=== PATIENT | female | born 1940 | race Caucasian/White ===

== ENCOUNTER 2017-11-07 12:41 | Observation (INO) ==
--- NOTE | 2017-11-07 13:04 | Emergency Department Note ---
Addendum entered and electronically signed by Gayle Cole 11/07/17 15:00: Addendum to diagnosis: Paresthesia of Right Arm. Original Note: Disposition Clinical Impression: Paresthesia of left arm Disposition: Admitted As Inpatient Condition: Fair General Adult HPI - General Chief complaint: ED Chest Pain Stated complaint: left arm numbness Time Seen by Provider: 11/07/17 12:51 Source: patient Mode of arrival: EMS Limitations: no limitations Nursing Notes Reviewed: Yes Vital Signs Reviewed: Yes - History of Present Illness HPI Narrative: Patient is a 77-year-old female with past medical history including hypothyroidism who presents with a chief complaint of right arm numbness that started 30 minutes ago. Patient states she was outside shoveling gravel and she suddenly developed right arm numbness and weakness. She states the numbness was radiating into the right side of her neck and face and down her right hand. She became nauseous and lightheaded and but denies loss of consciousness. She denies chest pain or shortness of breath, other extremity weakness, slurred speech, change in vision. She took 2 baby aspirin. She states this lasted 10 minutes and did not resolve so she called EMS to take her to the ED as this has never happened before. En route to the ED the patient received an additional 160 mg of aspirin. At present the patient states her lightheadedness and numbness resolved. She feels like her right shoulder is hard and does not feel right. Pain Scale: 4 - Related Data Home Medications Medication Instructions Recorded Confirmed Levothyroxine [Synthroid] 75 mcg PO QAM 11/07/17 11/07/17 All systems ED: reviewed and negative except as stated. Review of Systems: As Per HPI Constitutional: Denies: fever, chills Eyes: Denies: vision change ENT ED: Denies: throat pain, dysphagia Cardiovascular: Denies: chest pain, palpitations Respiratory: Denies: cough, dyspnea, wheezes Gastrointestinal: Reports: nausea. Denies: abdominal pain, vomiting, diarrhea Genitourinary: Denies: dysuria Musculoskeletal: Reports: other (right arm numbness and weakness). Denies: back pain, neck pain Integumentary: Denies: rash Neurological: Reports: weakness, numbness. Denies: headache Allergic/Immunologic: Denies: itchy eyes Past Medical History - Past Medical History Attestation: Yes The following information was validated with the patient. Source: patient Medical history: Reports: thyroid disease - Social History Smoking Status: Never smoker Drug use: Reports: none Physical Exam - General Limitations: no limitations General appearance: alert, in no apparent distress - Head Head exam: atraumatic, normocephalic - Eye Eye exam: Present: PERRL, EOMI - ENT ENT exam: normal exam, mucous membranes moist - Neck Neck exam: Present: full ROM. Absent: tenderness - Respiratory Respiratory exam: Present: normal lung sounds bilaterally. Absent: respiratory distress, wheezes - Cardiovascular Cardiovascular exam: Present: regular rate, normal rhythm, normal heart sounds - Abdominal Exam Abdominal exam: Present: soft, Non-Tender. Absent: distention - Extremities Exam Extremities exam: Present: full ROM, other (rull ROM of right shoulder, elbow, wrist. No tenderness of right arm or shoulder) - Neurological Exam Neurological exam: Present: alert, oriented X3, CN II-XII intact - Expanded Neurological Exam Patient oriented to: Present: person, place, time Cranial nerves: EOM function (II, III, IV, ): Normal, facial sensation (V): Normal, facial palsy (VII): Normal, spinal accessory function (XI): Normal, tongue deviation (XII): Normal Cerebellar function: finger to nose: Normal, heel to rodarte: Normal Motor strength - LUE: 5/5 Motor strength - RUE: 5/5 Motor strength - LLE: 5/5 Motor strength - RLE: 5/5 Upper motor neuron exam: diana neglect: Absent bilaterally, pronator drift: Absent bilaterally Sensory exam upper extremity: light touch: Normal Sensory exam lower extremity: light touch: Normal Course Vital Signs Temperature 97.9 F 11/07/17 12:47 Pulse Rate 75 11/07/17 12:47 Respiratory Rate 18 11/07/17 12:47 Blood Pressure 158/65 11/07/17 12:47 O2 Sat by Pulse Oximetry 95 11/07/17 12:47 Temperature 97.9 F 11/07/17 12:47 Pulse Rate 87 11/07/17 16:25 Respiratory Rate 18 11/07/17 17:05 Blood Pressure 137/86 11/07/17 17:05 O2 Sat by Pulse Oximetry 98 11/07/17 16:25 Oxygen Delivery Oxygen Delivery Room Air Medical Decision Making - MDM Narrative Medical decision making narrative: Numbness and weakness resolved at this time but patient still complaining of a weird feeling in her right arm. NIH score 0 on our exam. Patient's symptoms concerning for possible TIA. Will check CT head without contrast. Will also obtain cardiac workup. Check CBC, BMP, troponin, ekg, chest xray. She will likely need to be admitted for possible TIA workup. 13:30 CT head results shows no acute intracranial abnormality and chest xray shows no acute cardiopulmonary process. 14:15 Troponin is <0.03 and ekg with no acute ischemic changes. 14:25 BMP normal. Will consult hospitalist for admission for further workup of TIA. 14:40 Discussed with hospitalist, Dr. Gregory, who will accept patient. - Medical Records Medical records reviewed: Yes I reviewed the patient's medical records. - Lab Data Lab results reviewed: Yes I reviewed the patient's lab results. Result diagrams: 11/07/17 13:33 11/07/17 13:33 Lab Results 11/07/17 11/07/17 11/07/17 Range/Units 13:33 13:33 13:33 WBC 6.3 (4.3-11.1) K/mcL RBC 4.78 (3.82-4.97) M/mcL Hgb 13.9 (11.5-15.4) g/dL Hct 42.4 (35.3-44.9) % MCV 88.7 (83.0-100.0) fL MCH 29.1 (28.0-33.3) pg MCHC 32.8 (31.6-35.5) g/dL RDW 12.5 (11.5-14.5) % Plt Count 227 (140-400) K/mcL MPV 9.3 L (9.4-12.4) fL Immature Gran % 0.2 (0-4) % Seg Neutrophils % 48.7 % Lymphocytes % 31.5 % Monocytes % 11.9 % Eosinophils % 6.7 % Basophils % 1.0 % Neutrophils # 3.1 (1.6-8.9) K/mcL Lymphocytes # 2.0 (0.6-4.6) K/mcL Monocytes # 0.8 (0.0-1.3) K/mcL Eosinophils # 0.4 (0.0-0.6) K/mcL Basophils # 0.1 (0.0-0.2) K/mcL PT 10.2 (9.4-12.1) Seconds INR 0.9 APTT 28.5 (26.0-36.0) Seconds Sodium 139 (136-145) mEq/L Potassium 4.3 (3.5-5.1) mEq/L Chloride 105 (98-107) mEq/L Carbon Dioxide 28 (23-29) mEq/L BUN 21 (8-23) mg/dL Creatinine 0.79 (0.60-1.20) mg/dL Est GFR ( Amer) > 60 (> 60) Est GFR (Non-Af Amer) > 60 (> 60) BUN/Creatinine Ratio 27 H (6-26) Glucose 100 (70-105) mg/dL Calculated Osmolality 291 (280-300) Calcium 9.3 (8.6-10.3) mg/dL Troponin I < 0.03 (< 0.04) ng/mL TSH 3.373 (0.340-5.600) mcIU/mL - Radiology Data Radiology results reviewed: Yes I reviewed the patient's radiology results. Chest X-Ray 11/07/17 12:54 IMPRESSION: No acute process. D/ / Reji Blanc MD / Reji Blanc MD Interpreting Provider: Reji Blanc MD Head CT 11/07/17 12:55 IMPRESSION: No acute intracranial abnormality. D/ / Kisha Lyn MD / Kisha Lyn MD Interpreting Provider: Kisha Lyn MD - EKG Data EKG #1 EKG attestation: Yes I reviewed and interpreted this EKG. EKG results narrative: EKG on 11/07/17 at 13:33 shows sinus rhythm with rate 65. MN interval 119, QT 419 , QTc 436. No evidence of ST elevation or depression. Compared to prior ekg on 04/05/2009 with sinus rhythm. No acute changes. Heart Score - Score History: Slightly Suspicious EKG: Normal Age: Greater than 65 Risk Factors: No risk factors known Troponin: Less than normal limit HEART Score Total: 2
--- NOTE | 2017-11-07 13:06 | Emergency Department Note ---
Disposition Clinical Impression: Paresthesia of left arm Disposition: Admitted As Inpatient Condition: Fair Forms: ED Satisfaction Letter Time of Disposition: 14:58 General Adult HPI - General Chief complaint: ED Chest Pain Stated complaint: left arm numbness Time Seen by Provider: 11/07/17 12:51 Source: patient Mode of arrival: EMS Limitations: no limitations - History of Present Illness Pain Scale: 4 - Related Data Home Medications Medication Instructions Recorded Confirmed Levothyroxine [Synthroid] 75 mcg PO QAM 11/07/17 11/07/17 Past Medical History - Past Medical History Medical history: Reports: thyroid disease - Social History Smoking Status: Current every day smoker Physical Exam - General Limitations: no limitations General appearance: alert, in no apparent distress Course Vital Signs Temperature 97.9 F 11/07/17 12:47 Pulse Rate 75 11/07/17 12:47 Respiratory Rate 18 11/07/17 12:47 Blood Pressure 158/65 11/07/17 12:47 O2 Sat by Pulse Oximetry 95 11/07/17 12:47 Temperature 97.9 F 11/07/17 12:47 Pulse Rate 75 11/07/17 12:47 Respiratory Rate 18 11/07/17 12:47 Blood Pressure 158/65 11/07/17 12:47 O2 Sat by Pulse Oximetry 95 11/07/17 12:47 Oxygen Delivery Oxygen Delivery Room Air Medical Decision Making - Lab Data Result diagrams: 11/07/17 13:33 11/07/17 13:33 Lab Results 11/07/17 11/07/17 11/07/17 Range/Units 13:33 13:33 13:33 WBC 6.3 (4.3-11.1) K/mcL RBC 4.78 (3.82-4.97) M/mcL Hgb 13.9 (11.5-15.4) g/dL Hct 42.4 (35.3-44.9) % MCV 88.7 (83.0-100.0) fL MCH 29.1 (28.0-33.3) pg MCHC 32.8 (31.6-35.5) g/dL RDW 12.5 (11.5-14.5) % Plt Count 227 (140-400) K/mcL MPV 9.3 L (9.4-12.4) fL Immature Gran % 0.2 (0-4) % Seg Neutrophils % 48.7 % Lymphocytes % 31.5 % Monocytes % 11.9 % Eosinophils % 6.7 % Basophils % 1.0 % Neutrophils # 3.1 (1.6-8.9) K/mcL Lymphocytes # 2.0 (0.6-4.6) K/mcL Monocytes # 0.8 (0.0-1.3) K/mcL Eosinophils # 0.4 (0.0-0.6) K/mcL Basophils # 0.1 (0.0-0.2) K/mcL PT 10.2 (9.4-12.1) Seconds INR 0.9 APTT 28.5 (26.0-36.0) Seconds Sodium 139 (136-145) mEq/L Potassium 4.3 (3.5-5.1) mEq/L Chloride 105 (98-107) mEq/L Carbon Dioxide 28 (23-29) mEq/L BUN 21 (8-23) mg/dL Creatinine 0.79 (0.60-1.20) mg/dL Est GFR ( Amer) > 60 (> 60) Est GFR (Non-Af Amer) > 60 (> 60) BUN/Creatinine Ratio 27 H (6-26) Glucose 100 (70-105) mg/dL Calculated Osmolality 291 (280-300) Calcium 9.3 (8.6-10.3) mg/dL Troponin I < 0.03 (< 0.04) ng/mL TSH 3.373 (0.340-5.600) mcIU/mL Attestation Statement - Attestation Attestation: I examined this patient and my medical decision-making was reviewed with the Resident Physician. I agree with the documented findings, disposition and treatment plan as described except to the extent set forth below. Patient to the ED with a chief complaint of right arm numbness. Patient states while she was shoveling gravel today she started getting an abnormal sensation in her right arm. She states she been shoveling for about 10 minutes. She got numbness in her upper arm. It spread down into her hand and up into her shoulder. She states she got really scared when it spread into the side of her face and head. She was nauseated and weak. The symptoms lasted about 45 minutes for the results. Patient states she just feels like her right shoulder does not feel right. The numbness and weakness is resolved. R examination reveals an NIH scale of 0. Plan. Cardiac workup. CT head. Likely admission for TIA workup. Workup negative. Patient still without symptoms. Admitted to medicine for further workup. Chest X-Ray 11/07/17 12:54 IMPRESSION: No acute process. D/ / eRji Blanc MD / Reji Blanc MD Interpreting Provider: Reji Blanc MD Head CT 11/07/17 12:55 IMPRESSION: No acute intracranial abnormality. D/ / 11/07/2017 14:25:57 Kisha Lyn MD / [facility] Interpreting Provider: Kisha Lyn MD
[2017-11-07 13:46] LABS: Basophils # 0.1 K/mcL (0.0-0.2); Eosinophils # 0.4 K/mcL (0.0-0.6); Eosinophils % 6.7 %; Hematocrit 42.4 % (35.3-44.9); Hemoglobin 13.9 g/dL (11.5-15.4); Immature Granulocytes % 0.2 % (0-4); Lymphocytes % 31.5 %; Mean Corpuscular HGB Conc 32.8 g/dL (31.6-35.5); Mean Corpuscular Hemoglobin 29.1 pg (28.0-33.3); Mean Corpuscular Volume 88.7 fL (83.0-100.0); Mean Platelet Volume 9.3 fL (9.4-12.4); Monocytes # 0.8 K/mcL (0.0-1.3); Monocytes % 11.9 %; Neutrophils # 3.1 K/mcL (1.6-8.9); Platelet Count 227 K/mcL (140-400); Red Blood Count 4.78 M/mcL (3.82-4.97); Red Cell Distribution Width 12.5 % (11.5-14.5); Segmented Neutrophils % 48.7 %
[2017-11-07 13:54] LABS: INR 0.9; Prothrombin Time 10.2 Seconds (9.4-12.1)
[2017-11-07 13:57] LABS: Activated Partial Thrombo Time 28.5 Seconds (26.0-36.0)
[2017-11-07 14:11] LABS: Troponin I < 0.03 ng/mL (< 0.04)
[2017-11-07 14:21] LABS: BUN/Creatinine Ratio 27 (6-26); Blood Urea Nitrogen 21 mg/dL (8-23); Calcium 9.3 mg/dL (8.6-10.3); Carbon Dioxide 28 mEq/L (23-29); Chloride 105 mEq/L (98-107); Glucose 100 mg/dL (70-105); Osmolality,Calculated 291 (280-300); Potassium 4.3 mEq/L (3.5-5.1); Sodium 139 mEq/L (136-145); eGFR For Non-African Americans > 60 (> 60)
[2017-11-07 14:25] LABS: Thyroid Stimulating Hormone 3.373 mcIU/mL (0.340-5.600)
[2017-11-07] MEDS ORDERED: Naloxone 0.4 MG/ML INJ IVP PRN (15:44)
[2017-11-07] MEDS ORDERED: *HR* HYDROcodone/Acet 5/325 mg TABLET PO PRN (15:44)
[2017-11-07] MEDS ORDERED: Acetaminophen 325 MG TABLET PO PRN (15:44)
--- NOTE | 2017-11-07 15:59 | Internal Med History&Physical ---
<YaminiSai borges - Last Filed: 11/07/17 16:20> Date of Encounter: 11/07/17 Time of Encounter: 15:00 Internal Medicine - H&P: HPI Chief complaint: CVA/TIA sx Admitted From: Emergency Dept Plans for Post Hospital Care: Home History of present illness: Ms. Abdi is a 77 year old female w/PMH of thyroid disease presents from the ED w/CC of TIA sx that occurred this morning at 10 a.m. while the pt. was exerting herself shoveling gravel from a truck. Pt. states her right arm went numb and spread to her right neck and head. Pt. reports SOB but denies any CP, facial droop, or slurred speech. Pt states that she felt as though she was about to pass out and felt dizzy/lightheaded. Took two aspirin at home along with hot sauce and received two more aspirin from general machinist. Reports sx improved w/ aspirin. Aggravating factor: exertion. Reports that she is back to her baseline once she was at the ED, however right arm is still mildly numb. Pt. denies recent illness, fever, chills, nausea, vomiting, headache, changes in vision, unusual bleeding, chest pain, chest congestion, cough, abdominal pain, diarrhea , constipation, or syncope. Past Med Surg Social Fam HX - Past Medical History Source: patient, old records reviewed, obtained from family Medical history: thyroid disease Psychiatric history: no psych history - Social History Smoking Status: Never smoker Alcohol use: none Drug use: none Current living situation: Home, With Family Activity Level: Independent ambulation, Very active Recent Out of Country Travel Within the Last 8 Weeks: No Exposure or Possible Exposure to Illness During Travel: No - Family History Father Race: Family Member Ethnicity: Non- Living Status: Age at : 80 Cause of : Bleeding ulcers Hx Family GI Disorders: Yes (Ulcers) Mother Race: Family Member Ethnicity: Non- Living Status: Age at : 90 Cause of : DM complications Hx Family Cardiac Disorders: Yes (TIAs) Hx Family Endocrine Disorder: Yes (DM) Hx Family Neurologic Disorders: Yes (TIAs) Brother Race: Family Member Ethnicity: Non- Living Status: Still Living Hx Family Medical Disorders: No Sister Race: Family Member Ethnicity: Non- Living Status: Still Living Hx Family Endocrine Disorder: Yes (Hypoglycemia) Grandmother Race: Family Member Ethnicity: Non- Living Status: Age at : 80 Cause of : CVA Hx Family Cardiac Disorders: Yes (CVA) Hx Family Neurologic Disorders: Yes (CVA) Internal Medicine - H&P: Meds Levothyroxine [Synthroid] 75 mcg PO QAM 11/07/17 [History] 3 Allergy/AdvReac Type Severity Reaction Status Date / Time No Known Allergies Allergy Verified 11/07/17 15:16 All Systems PM: A 10-system review of systems was performed and is negative for pertinent findings except as documented above in the HPI. - Constitutional Constitutional: no chills, no fever(s), no night sweats - EENT Eyes: no change in vision, no discharge, no pain, no photophobia Ears: no ear discharge, no ear pain, no tinnitus Nose, mouth and throat: no dysphagia, no nasal discharge, no neck pain, no sore throat - Breasts Breasts: as per HPI - Cardiovascular Cardiovascular ROS IM: as per HPI, dyspnea, dyspnea on exertion, lightheadedness , no chest pain, no diaphoresis, no palpitations, no syncope - Respiratory Respiratory: as per HPI, dyspnea, dyspnea on exertion, no cough, no wheezing, no excessive phlegm production - Gastrointestinal Gastrointestinal: no abdominal pain, no diarrhea, no hematemesis, no hematochezia, no melena, no nausea, no vomiting - Genitourinary Genitourinary: no change in urinary stream, no dysuria, no flank pain, no hematuria Menstruation: as per HPI - Musculoskeletal Musculoskeletal ROS IM: no numbness, no tingling - Integumentary Integumentary IM: no rash, no unusual bruising - Neurological Neurological ROS: as per HPI, dizziness, no confusion, no convulsions, no focal weakness, no numbness, no tingling, no tremor(s) - Psychiatric Psychiatric: as per HPI - Endocrine Endocrine IM: as per HPI - Hematologic/Lymphatic Hematologic/Lymphatic: no easy bruising - Allergic/Immunologic Allergic/Immunologic: as per HPI - Constitutional Vitals: Temp Pulse Resp BP Pulse Ox 97.9 F 75 18 158/65 95 11/07/17 12:47 11/07/17 12:47 11/07/17 12:47 11/07/17 12:47 11/07/17 12:47 General appearance: Present: cooperative, A&O X 3, pleasant, no acute distress, obese, answers questions appropriately Exam: Pt. examined at bedside in ED. Pt. was conversational and comfortable w/o neuro deficits, facial droop, pronator drift, or slurred speech. Reports mild numbness to right arm but numbness to right neck and head are resolved. Received 5 aspirin and drank hot sauce (for the Capsaicin). Denies previous occurrence or personal hx of TIA/CVA. Reports SOB and dizziness have resolved. Denies other sx on exam. Will do stroke work-up. Family present and plan of care explained to them. Pt. and family expressed understanding and agreement. - Head Head exam: Present: atraumatic, normocephalic - Eye Eye exam: Present: PERRL, conjuntiva pink, sclera anicteric Pupils: Present: PERRL - ENT ENT exam: Present: normal exam - Neck Neck exam general surgery: Present: normal inspection, supple, trachea midline. Absent: lymphadenopathy - Respiratory Respiratory exam: Present: CTAB. Absent: accessory muscle use, rales, rhonchi, wheezes - Cardiovascular Cardiovascular exam: Present: RRR, +S1, +S2. Absent: diastolic murmur, gallop, rubs, systolic murmur - GI/Abdominal GI/Abdominal exam: Present: normal bowel sounds, soft, no peritoneal signs. Absent: distended, tenderness - Rectal Rectal exam: Present: deferred - Additional comments: exam deferred. - Extremities Exam Extremities exam: Present: warm, radial pulses palpable and symmetrical. Absent : calf tenderness, cyanotic, pedal edema - Back Exam Back exam: Present: normal inspection - Neurological Exam Neurological exam: Present: alert, CN II-XII intact, oriented X3, no focal deficits. Absent: pronater drift, facial droop, speech deficit - Psychiatric Psychiatric exam: Present: normal affect, normal mood - Skin Skin exam: Present: dry, intact Internal Med - H&P Results - Labs CBC & Chem 7: 11/07/17 13:33 11/07/17 13:33 Labs: Short CBC 11/07/17 Range/Units 13:33 WBC 6.3 (4.3-11.1) K/mcL Hgb 13.9 (11.5-15.4) g/dL Hct 42.4 (35.3-44.9) % Plt Count 227 (140-400) K/mcL Neutrophils # 3.1 (1.6-8.9) K/mcL BMP 11/07/17 13:33 Sodium 139 Potassium 4.3 Chloride 105 Carbon Dioxide 28 BUN 21 Creatinine 0.79 Glucose 100 Calcium 9.3 Cardiac Enzymes 11/07/17 Range/Units 13:33 Troponin I < 0.03 (< 0.04) ng/mL - EKG Data EKG shows normal: sinus rhythm - EKG Data Prior EKG available for review: yes EKG comments: 11/07/17 16:06 EKG dated 04/05/09 shows sinus rhythm within normal limits and normal ECG. EKG dated 11/07/17 shows sinus rhythm with borderline short [place] interval and borderline low voltage in extremity leads. - Impressions ITS Impressions Chest X-Ray 11/07/17 12:54 IMPRESSION: No acute process. D/ / Reji Blanc MD / Reji Blanc MD Interpreting Provider: Reji Blanc MD Head CT 11/07/17 12:55 IMPRESSION: No acute intracranial abnormality. D/ / 11/07/2017 14:25:57 Kisha Lyn MD / [facility] Interpreting Provider: Kisha Lyn MD - Diagnostic Studies Chest x-ray Additional comments: Impressions Chest X-Ray 11/07/17 12:54 IMPRESSION: No acute process. D/ / Reji Blanc MD / Reji Blanc MD Interpreting Provider: Reji Blanc MD CT scan - head Additional comments: Impressions Head CT 11/07/17 12:55 IMPRESSION: No acute intracranial abnormality. D/ / 11/07/2017 14:25:57 Kisha Lyn MD / lore Interpreting Provider: Kisha Lyn MD - Assessment and plan (1) TIA (transient ischemic attack) Current Visit: Yes Status: Acute Assessment and plan: Acute paresthesia of the right arm which spread to right neck and head. Sx resolved following ASA except for mild numbness in right arm that remains. Denies previous occurrence or personal hx of CVA/TIA. Grandmother of CVA. Mother had hx of TIAs. On exam, no neuro deficits, facial droop, pronator drift , slurred speech. Falls/safety precautions. Up with assist only. CT of the head/ brain shows no intracranial abnormality. MRI of the head/brain ordered. NIHSS Modified. Neuro checks Q2HR. Padding to bed rails. NPO until dysphagia screen passed. Bilateral carotid Dopplers. Echocardiogram. Continuous cardiac telemetry. Consider Neurology consult if MRI results abnormal. Pt. discussed w/ Dr. Aggarwal who agrees w/plan of care. Pt. is moderate risk for further morbidity and complications d/t new onset of TIA-type sx, current obesity, and familial hx of CVA/TIA. Observation. (2) Paresthesia of right upper limb Current Visit: Yes Status: Acute Assessment and plan: Acute paresthesia of the right arm which spread to right neck and head. Sx resolved following ASA except for mild numbness in right arm that remains. Denies previous occurrence or personal hx of CVA/TIA. Grandmother of CVA. Mother had hx of TIAs. Falls/safety precautions. Up with assist only. CT of the head/brain shows no intracranial abnormality. MRI of the head/brain ordered. NIHSS Modified. Neuro checks Q2HR. Padding to bed rails. NPO until dysphagia screen passed. Bilateral carotid Dopplers. Echocardiogram. Continuous cardiac telemetry. (3) SOB (shortness of breath) Current Visit: Yes Status: Acute Assessment and plan: Acute SOB today with neuro sx. Pt. denies hx of COPD, smoking, CHF, or home O2 use. No pedal edema on exam. Lungs clear on auscultation. Pt. states she is generally very active. Supplemental O2 w/titration and SpO2 monitoring PRN. Falls/safety precautions and up with assist only. (4) Dizziness Current Visit: Yes Status: Acute Assessment and plan: Acute dizziness today w/neuro sx. Pt. states she felt as though she was going to pass out. Bilateral carotid Dopplers. Echocardiogram. Orthostatic BPs and VS. Falls/safety precautions and up with assist only. Continuous cardiac telemetry. (5) Thyroid disease Current Visit: Yes Status: Chronic Assessment and plan: Hx of chronic thyroid disease. TSH 3.373 on admission. Continue pts. Synthroid. (6) DVT prophylaxis Current Visit: Yes Status: Acute Assessment and plan: Bilateral SCDs on LEs for DVT prophylaxis until pts. MRI resulted to r/o infarct /ischemia. - Time Spent With Patient Total time spent is greater than 50% in coordination of care (as documented) at patient's floor/unit and/or counseling patient: Greater than 35 minutes <Vito Aggarwal - Last Filed: 11/07/17 20:16> Date of Encounter: 11/07/17 Internal Medicine - H&P: HPI History of present illness: Ms. Abdi is a 77 year old female All Systems PM: A 10-system review of systems was performed and is negative for pertinent findings except as documented above in the HPI. - Constitutional Vitals: Temp Pulse Resp BP Pulse Ox 97.6 F 55 16 96/60 95 11/07/17 18:39 11/07/17 18:39 11/07/17 18:39 11/07/17 18:39 11/07/17 18:39 Internal Med - H&P Results - Labs CBC & Chem 7: 11/07/17 13:33 11/07/17 13:33 Labs: Cardiac Enzymes 11/07/17 Range/Units 19:20 Troponin I < 0.03 (< 0.04) ng/mL - Assessment and plan (1) TIA (transient ischemic attack) Current Visit: Yes Status: Acute (2) Paresthesia of right upper limb Current Visit: Yes Status: Acute (3) SOB (shortness of breath) Current Visit: Yes Status: Acute (4) Dizziness Current Visit: Yes Status: Acute (5) Thyroid disease Current Visit: Yes Status: Chronic (6) DVT prophylaxis Current Visit: Yes Status: Acute - Time Spent With Patient Total time spent is greater than 50% in coordination of care (as documented) at patient's floor/unit and/or counseling patient: - Attending Attestation Seen and assessed. Continue management for TIA. Agree with plan per EDUCATIONAL TECHNOLOGY COORDINATOR
[2017-11-08 01:38] LABS: Basophils % 0.8 %; Eosinophils # 0.4 K/mcL (0.0-0.6); Eosinophils % 8.2 %; Hematocrit 38.5 % (35.3-44.9); Hemoglobin 12.9 g/dL (11.5-15.4); Immature Granulocytes % 0.2 % (0-4); Lymphocytes # 2.1 K/mcL (0.6-4.6); Lymphocytes % 39.6 %; Mean Corpuscular HGB Conc 33.5 g/dL (31.6-35.5); Mean Corpuscular Hemoglobin 29.3 pg (28.0-33.3); Mean Corpuscular Volume 87.3 fL (83.0-100.0); Mean Platelet Volume 9.3 fL (9.4-12.4); Monocytes # 0.7 K/mcL (0.0-1.3); Monocytes % 13.3 %; Platelet Count 207 K/mcL (140-400); Red Blood Count 4.41 M/mcL (3.82-4.97); Red Cell Distribution Width 12.7 % (11.5-14.5); Segmented Neutrophils % 37.9 %
[2017-11-08 01:44] LABS: Alanine Aminotransferase 9 Units/L (7-52); Albumin 3.6 g/dL (3.5-5.7); Albumin/Globulin Ratio 1.3 (1.1-2.2); Alkaline Phosphatase 62 Units/L (34-104); Aspartate Amino Transferase 14 Units/L (13-39); BUN/Creatinine Ratio 26 (6-26); Bilirubin,Total 0.4 mg/dL (0.3-1.0); Blood Urea Nitrogen 20 mg/dL (8-23); Carbon Dioxide 27 mEq/L (23-29); Chloride 106 mEq/L (98-107); Chol/HDL Ratio 5.7 (0-4.9); Cholesterol 205 mg/dL (< 200); Globulin 2.7 g/dL (2.4-3.5); Glucose 118 mg/dL (70-105); HDL Cholesterol 36 mg/dL (40-59); LDL Cholesterol,Calculated 131 mg/dL (0-99); Magnesium 2.1 mg/dL (1.6-2.6); Osmolality,Calculated 290 (280-300); Potassium 3.9 mEq/L (3.5-5.1); Sodium 138 mEq/L (136-145); Total Protein 6.3 g/dL (6.4-8.9); Triglycerides 188 mg/dL (< 150); eGFR For Non-African Americans > 60 (> 60)
[2017-11-08] MEDS ORDERED: Aspirin Enteric Coated 81 MG Tablet PO SCH (09:00)
--- NOTE | 2017-11-08 09:01 | Neurology - Consult Note ---
<Henry Phelps P - Last Filed: 11/08/17 10:20> Date of Encounter: 11/08/17 Time of Encounter: 09:30 Assessment and Plan (1) TIA (transient ischemic attack) Current Visit: Yes Status: Acute She has weakness and numbness in her right arm lasted for less than 24 hours She states that she had weakness in right arm 50% less than her left arm CTA head and CT head : negative for bleeding or any acute intracranial abnormality MRI: Non hemorrhagic cortical infarct left frontal lobe Echo : no Clot , no PFO , mild LVDD EF 65% She is on aspirin History of Present Illness Chief complaint: Acute onset of Weakness in right arm and neck HPI: Ms. Abdi is a 77 year old female past diagnosis of Thyroid disease admitted in [facility] via ED for sudden weakness and numbness in right arm , neck while shoveling from a loaded truck . She stated that it started suddently and get worse in a few hours and gradually better in about 24 hours. She states that she has mild numbness in her right upper limb but very minimal , but She had chest pain and felt that she is going to pass out. She admits dizziness, mild nausea and light headedness during the attack . She didn't have similar symptoms in the past .She denies any facial droop , slurred speech, nausea, vomiting ,fever, chills, nausea, vomiting, headache, changes in vision, unusual bleeding, chest pain, chest congestion, cough, abdominal pain, diarrhea, constipation, or syncope. Vitals : 97.9, pul 70, sat 95%, BP 152/ 71 Labs : WBC 5.3 Na 138 K 3.9 BUN 20, creatinine 0.76, Cholesterol 205, LDL 131 , TG 188 Report: MRI head :Subcentimeter acute nonhemorrhagic cortical infarct left frontal lobe. CT head:No acute intracranial abnormality. Echo : mild LVDD with EF 65% , no left artial clot or PFO Past Med Surg Social Fam HX - Past Medical History Medical history: thyroid disease Psychiatric history: no psych history - Past Surgical History Surgical History: hysterectomy - Social History Smoking Status: Never smoker Alcohol use: none Drug use: none - Family History Father Race: Family Member Ethnicity: Non- Living Status: Age at : 80 Cause of : Bleeding ulcers Hx Family GI Disorders: Yes (Ulcers) Mother Race: Family Member Ethnicity: Non- Living Status: Age at : 90 Cause of : DM complications Hx Family Cardiac Disorders: Yes (TIAs) Hx Family Endocrine Disorder: Yes (DM) Hx Family Neurologic Disorders: Yes (TIAs) Brother Race: Family Member Ethnicity: Non- Living Status: Still Living Hx Family Medical Disorders: No Sister Race: Family Member Ethnicity: Non- Living Status: Still Living Hx Family Endocrine Disorder: Yes (Hypoglycemia) Grandmother Race: Family Member Ethnicity: Non- Living Status: Age at : 80 Cause of : CVA Hx Family Cardiac Disorders: Yes (CVA) Hx Family Neurologic Disorders: Yes (CVA) Medications and Allergies Levothyroxine [Synthroid] 75 mcg PO QAM 11/07/17 [History] 3 Allergy/AdvReac Type Severity Reaction Status Date / Time No Known Allergies Allergy Verified 11/07/17 15:16 All Systems: The remainder of the systems were reviewed and are negative Physical Examination - Vital Signs Vital Signs: Initial Vital Signs Temp Pulse Resp BP Pulse Ox 97.9 F 75 18 158/65 95 11/07/17 12:47 11/07/17 12:47 11/07/17 12:47 11/07/17 12:47 11/07/17 12:47 - Constitutional General appearance: comfortable - Neurologic Sensorimotor examination: intact Detailed motor examination: grossly full strength in all extremities Motor examination - right side: 5/5: deltoids, biceps, triceps, wrist flexion, wrist extension, employment law attorney, hip flexors, tibialis Anterior, quadriceps, toe extension (EHL), plantarflexion Motor examination - left side: 5/5: deltoids, biceps, triceps, wrist flexion, wrist extension, hip flexors, employment law attorney, quadriceps, tibialis Anterior, toe extension (EHL), plantarflexion Detailed sensory examination: intact Reflex and gait examination: intact Reflexes: Biceps: 2+, Triceps: 2+, Brachioradialis: 2+, Patella: 2+, Achilles: 2 + Mental Status Examination: awake, alert, oriented to person, oriented to place, oriented to time, follows commands appropriately, answers questions appropriately Cranial nerve examination: PERRL, EOMI, visual whipple intact, corneal reflexes brisk symmetrically, sensory to face intact, no facial asymmetry is present Cerebellar examination: no dysmetria, performs finger to nose and heel to rodarte symmetrically without ataxia, no gait ataxia Results - Laboratory Findings CBC and BMP: 11/08/17 01:12 11/08/17 01:12 Abnormal lab findings: Abnormal lab results MPV 9.3 fL (9.4-12.4) L 11/08/17 01:12 Glucose 118 mg/dL (70-105) H 11/08/17 01:12 Serum Total Protein 6.3 g/dL (6.4-8.9) L 11/08/17 01:12 Triglycerides 188 mg/dL (< 150) H 11/08/17 01:12 Cholesterol 205 mg/dL (< 200) H 11/08/17 01:12 LDL Cholesterol, Calc 131 mg/dL (0-99) H 11/08/17 01:12 VLDL Cholesterol, Calc 38 mg/dL (< 31) H 11/08/17 01:12 HDL Cholesterol 36 mg/dL (40-59) L 11/08/17 01:12 Cholesterol/HDL Ratio 5.7 (0-4.9) H 11/08/17 01:12 Consult Discharge Plan - Plan Referrals: Saul Murrieta MD [Primary Care Provider] - 11/12/17 10:00 am <Yohannes Neil I - Last Filed: 11/08/17 16:50> Date of Encounter: 11/08/17 Assessment and Plan (1) CVA (cerebral vascular accident) Current Visit: Yes Status: Acute Pt was seen and examined, my medical decision was reviewed with the Resident Physician, I agree with the documented findings, disposition and treatment plas as described except to the extent set forth below Clinically patient does not have any symptoms on her neurological examination is completely back to the baseline On MRI scan she did have a very small lacunar cortical infarct in the left frontal lobe. Echocardiogram is negative Carotid duplex did shows evidence of flow left ICA 60-79% stenosis in the right ICA is about 50% stenosis Patient is on aspirin and also started on statin that she should continue on it She will be following up with neurology in 2-3 weeks as an outpatient Probably would also benefit from vascular consultation again that could be done as an outpatient Clinically she is stable no focal neurological deficit She would not require any physical therapy or speech therapy evaluation as no clinical deficit Yohannes Neil MD Qualifiers: CVA mechanism: unspecified Qualified Code(s): I63.9 - Cerebral infarction, unspecified History of Present Illness HPI: Ms. Abdi is a 77 year old female All Systems: The remainder of the systems were reviewed and are negative Physical Examination - Vital Signs Vital Signs: Initial Vital Signs Temp Pulse Resp BP Pulse Ox 97.9 F 75 18 158/65 95 11/07/17 12:47 11/07/17 12:47 11/07/17 12:47 11/07/17 12:47 11/07/17 12:47 Results - Laboratory Findings CBC and BMP: 11/08/17 01:12 11/08/17 01:12 Abnormal lab findings: Abnormal lab results MPV 9.3 fL (9.4-12.4) L 11/08/17 01:12 Glucose 118 mg/dL (70-105) H 11/08/17 01:12 Hemoglobin A1c 5.8 % (-5.6) H 11/08/17 01:12 Serum Total Protein 6.3 g/dL (6.4-8.9) L 11/08/17 01:12 Triglycerides 188 mg/dL (< 150) H 11/08/17 01:12 Cholesterol 205 mg/dL (< 200) H 11/08/17 01:12 LDL Cholesterol, Calc 131 mg/dL (0-99) H 11/08/17 01:12 VLDL Cholesterol, Calc 38 mg/dL (< 31) H 11/08/17 01:12 HDL Cholesterol 36 mg/dL (40-59) L 11/08/17 01:12 Cholesterol/HDL Ratio 5.7 (0-4.9) H 11/08/17 01:12
[2017-11-08 12:07] LABS: Estimated Average Glucose 120 mg/dl; Hemoglobin A1C 5.8 %
[2017-11-08 15:27] VITALS: BP 100/65
--- NOTE | 2017-11-08 18:48 | Discharge Summary ---
- NOTES TO OUTPATIENT PROVIDER Notes to Outpatient Provider: Ms. Abdi, was admitted from emergency room with acute onset of right arm weakness. 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 She was admitted for CVA/Stroke. MRI of the brain showed a small non-hemarrgic infarct in the frontal cortex. Ancillary findings of mixed hyperlipidema was also noted. Her hospital stay was uneventful. She returned to baseline, w/o any residule, neruological deficiets. Consult with Dr Neil was completed and results of MRI were discussed with patient. She is to be discharged home on ASA 81 mg daily , and Lipitor 10mg , with f/u with Dr. Neil in 1-2 weeks. Orders not resulted at time of discharge: none Date of Encounter: 11/08/17 Time of Encounter: 16:00 - Discharge Diagnosis (1) CVA (cerebral vascular accident) Priority: Primary Status: Acute Assessment and Plan: MRI results were discussed with the patient and her family patient has returned to baseline without any neurological deficit. Patient will be sent home on aspirin 81 mg daily and is to follow up with Dr. Neil neurologist in 1-2 weeks Comments: non-hemorragic infarct left frontal lobe Qualifiers: CVA mechanism: other Qualified Code(s): I63.8 - Other cerebral infarction (2) TIA (transient ischemic attack) Priority: Primary Status: Resolved Assessment and Plan: MRI of brain shows positive non-hemorrhagic infarct of the frontal lobe. She has returned to baseliine, w/o any obvious, neurological deficit. (3) Paresthesia of right upper limb Priority: Primary Status: Resolved Assessment and Plan: Acute paresthesia of the right arm which spread to right neck and head. Sx resolved following ASA except for mild numbness in right arm that remains. Denies previous occurrence or personal hx of CVA/TIA. Grandmother of CVA. Mother had hx of TIAs. Falls/safety precautions. Up with assist only. CT of the head/brain shows no intracranial abnormality. MRI of the head/brain ordered. NIHSS Modified. Neuro checks Q2HR. Padding to bed rails. NPO until dysphagia screen passed. Bilateral carotid Dopplers. Echocardiogram. Continuous cardiac telemetry. (4) SOB (shortness of breath) Priority: Secondary Status: Resolved (5) Dizziness Priority: Primary Status: Resolved (6) Thyroid disease Priority: Secondary Status: Chronic Assessment and Plan: To continue with thyroid medications at home (7) DVT prophylaxis Priority: Primary Status: Resolved Assessment and Plan: To add 81 mg of ASA daily. Hospital course: Ms. Abdi is a 77 year old female who was admitted stroke from the emergency room. 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 Her symptoms quickly resolved within 2-3 hours after admission she returned to baseline. She was evaluated per Dr. Neil and brain MRI was obtained. Results of the MRI of the brain on 912 did show subcentimeter acute nonhemorrhagic cortical infarct left frontal lobe with no additional acute findings. Review of lab work showed mixed hyperlipidemia with elevated triglycerides 188 total cholesterol 205 and LDL 101 41 patient will be placed on Lipitor 10 mg along with 81 mg aspirin daily. He is to follow up with Dr. Neil in his office in 1-2 weeks Discharge discussed with: patient, family Time spent discussing smoking cessation with patient: 3 to 10 minutes - Time Spent with Patient Total time spent providing and/or coordinating discharge services: Greater than 30 minutes - Discharge Medications Home Medications: Levothyroxine [Synthroid] 75 mcg PO QAM 11/07/17 [History] Aspirin Enteric Coated [Aspirin EC] 81 mg PO DAILY tablet. 11/08/17 [Rx] Atorvastatin [Lipitor] 10 mg PO HS tablet 11/08/17 [Rx] Allergies/Adverse Reactions: 3 Allergy/AdvReac Type Severity Reaction Status Date / Time No Known Allergies Allergy Verified 11/07/17 15:16 Date of admission: 11/07/17 16:53 Primary care physician: Saul Murrieta MD Consults: 11/07/17 23:21 Consult to Neurology [CONS] Routine Consulting Provider: Neu[facility] Reason for Consult: Patient admitted today w/CC of right arm numbness that extended up to right neck and head. Pt. took three ASA and was given two more in squad. Stated that sx had resolved except for mild numbness in right arm. CT of the head showed no acute intracranial abnormality. MRI of the head/brain shows subcentimeter acute nonhemorrhagic cortical infarct of the left frontal lobe. No additional acute findings. Echocardiogram and bilateral carotid Dopplers ordered. Will continue aspirin. Call Completed: Yes Discharging clinician: Coral Bryant Anticipated date of discharge: 11/08/17 - Constitutional Vitals: Temp Pulse Resp BP Pulse Ox 98.2 F 80 16 100/65 96 11/08/17 15:26 11/08/17 15:26 11/08/17 15:26 11/08/17 15:26 11/08/17 15:26 Stable General appearance: Present: cooperative, A&O X 3, pleasant, no acute distress, obese, answers questions appropriately Exam: stable - Head Head exam: Present: atraumatic, normocephalic - Eye Eye exam: Present: PERRL, conjuntiva pink, sclera anicteric Pupils: Present: PERRL - Neck Neck exam general surgery: Present: supple, trachea midline. Absent: lymphadenopathy - Respiratory Respiratory exam: Present: CTAB. Absent: accessory muscle use, rales, rhonchi, wheezes - Cardiovascular Cardiovascular exam: Present: RRR, +S1, +S2. Absent: diastolic murmur, gallop, rubs, systolic murmur - GI/Abdominal GI/Abdominal exam: Present: normal bowel sounds, soft, no peritoneal signs. Absent: distended, tenderness - Extremities Exam Extremities exam: Present: warm, radial pulses palpable and symmetrical. Absent : calf tenderness, cyanotic, pedal edema - Neurological Exam Neurological exam: Present: CN II-XII intact, oriented X3, no focal deficits. Absent: pronater drift, facial droop, speech deficit - Skin Skin exam: Present: dry, intact - Patient Status Disposition: Home, Self-Care Condition: Good Functional capacity at discharge: independent ambulation - Discharge Instructions Follow Up With: Saul Murrieta MD [Primary Care Provider] - 11/12/17 10:00 am Yohannes Neil MD [Partnered Physician] - - Diet and Activity Activity: increase activity as tolerated Diet: low fat, low cholesterol
--- NOTE | 2017-11-10 16:58 | Electrocardiograph Report ---
[facility] Test Date: 2017-11-07 Pat Name: Barb Abdi Department: EXAM9 Room: 3B64 Gender: Brown Sourer: : 1940 Requested By: Gayle Cole Order Number: [id number] Reading MD: Felipe Sevilla Measurements Intervals [place] Rate: 65 P: 61 MT: 119 QRS: 55 QRSD: 97 T: 62 QT: 419 QTc: 436 Interpretive Statements Sinus rhythm Borderline short MT interval Borderline low voltage, extremity leads Electronically Signed On 11-10-2017 16:56:56 EDT by Felipe Sevilla
== END 2017-11-08 19:50 | disposition home or self-care (01) ==
LOC: EMEROOARM 12:41 → 3BNU 12:41
PROVIDERS: ADMIT Student in an Organized Health Care Education/Training Program; ATTEND Student in an Organized Health Care Education/Training Program

== ENCOUNTER 2018-11-19 23:08 | Observation (INO) ==
[2018-11-19] MEDS ORDERED: 0.9 % Sodium Chloride 1,000 ML IVC ONE (23:39)
--- NOTE | 2018-11-19 23:40 | Emergency Department Note ---
Disposition Clinical Impression: New onset a-fib Disposition: Admitted As Inpatient Condition: Good Referrals: Saul Murrieta MD [Primary Care Provider] - Forms: ED Satisfaction Letter Time of Disposition: 02:20 (accepted by Breanna) General Adult HPI - General Chief complaint: ED Syncope Stated complaint: FEELING DIZZY Time Seen by Provider: 11/19/18 23:10 Source: patient, EMS Mode of arrival: EMS Limitations: no limitations Nursing Notes Reviewed: Yes Vital Signs Reviewed: Yes - History of Present Illness HPI Narrative: Patient is an 78-year-old female who is presenting for dizziness. Patient with history of hyperlipidemia and hypothyroidism. Patient otherwise on no further medications. Patient states for the past few days she has been having intermittent episodes of generalized weakness and dizziness, she states that she overall has fatigue and sense of tiredness. She states this is exertional and nonexertional, she states at times she will have palpitations and feeling as though her heart is racing out of her chest. No specific chest pain. No shortness of breath or difficulty breathing. She was diagnosed with bronchitis a few weeks ago but has been doing better, no worsening cough, fevers or chills. She denies any dysuria, abdominal pain, nausea or vomiting. Pain Scale: 8 - Related Data Home Medications Medication Instructions Recorded Confirmed Levothyroxine [Synthroid] 75 mcg PO QAM 11/07/17 11/19/18 Allergies Allergy/AdvReac Type Severity Reaction Status Date / Time No Known Allergies Allergy Verified 11/19/18 23:33 All systems ED: reviewed and negative except as stated. Review of Systems: As Per HPI Constitutional: Reports: weakness. Denies: fever, chills ENT ED: Denies: congestion Cardiovascular: Denies: chest pain, palpitations, dyspnea on exertion, syncope Respiratory: Reports: cough. Denies: dyspnea, wheezes, sputum production Gastrointestinal: Denies: abdominal pain, nausea, vomiting Genitourinary: Denies: urgency, dysuria Musculoskeletal: Denies: back pain Integumentary: Denies: rash Neurological: Reports: weakness. Denies: headache, numbness, confusion Psychiatric: Denies: anxiety Endocrine: Reports: fatigue Hematological/Lymphatic: Denies: easy bleeding Past Medical History - Past Medical History Medical history: Reports: thyroid disease Surgical history: Reports: hysterectomy Psychiatric history: Reports: no psych history - Social History Smoking Status: Never smoker Smokeless Tobacco Status: No Alcohol use: Reports: none Drug use: Reports: none Physical Exam General: Conversant. No apparent distress. Follow commands. Appears stated age. Neck: No JVD. Trachea midline. Neck supple. Eyes: PERRL. No scleral icterus. HENT: Normocephalic and atraumatic. Moist mucus membranes. Cardiovascular: Irregularly irregular tachycardic rhythm Normal S1 and S2. No murmurs appreciated. Normal capillary refill. Extremities well perfused with 2+ distal pulses bilaterally. No edema. Pulmonary: Normal and equal breath sounds bilaterally, anteriorly and posteriorly. No wheezes, rales, or rhonchi. Not in respiratory distress. Speaks in full sentences. Abdomen: Soft, nondistended, without tenderness. No bruits or masses. No guarding or rebound. Neuro: Alert and oriented x3. No slurred speech. No focal deficits noted. Skin: No rashes noted on visualized skin. Musculoskeletal: No bony abnormalities visualized. Moves all extremities. Psych: Normal mood. Pleasant. Makes appropriate eye contact. - General Limitations: no limitations General appearance: alert Course Vital Signs Temperature 98.3 F 11/19/18 23:25 Pulse Rate 128 11/19/18 23:25 Respiratory Rate 20 11/19/18 23:25 Blood Pressure 131/76 11/19/18 23:25 O2 Sat by Pulse Oximetry 98 11/19/18 23:25 Temperature 98.2 F 11/19/18 23:29 Pulse Rate 68 11/20/18 02:20 Respiratory Rate 20 11/20/18 02:20 Blood Pressure 134/78 11/20/18 02:20 O2 Sat by Pulse Oximetry 98 11/20/18 02:20 Oxygen Delivery Oxygen Delivery Room Air Medical Decision Making - [facility] Narrative Medical decision making narrative: Patient is an 78-year-old female presenting with dizziness. Patient is found to be in atrial fibrillation with RVR on arrival, she is otherwise hemodynamically stable. She has no history of abnormal heart rhythm in the past, she did take 3 baby aspirin this morning, typical takes aspirin occasionally at home. Patient with known history of hyperlipidemia and hypothyroidism currently on Synthroid. Patient otherwise is remained stable. While patient was here, we ordered a liter of fluids, Cardizem bolus of 10 mg IV as well as drip, however the patient heart rate after about a half hour to 45 minutes here in the ER, decreased below 100 prior to medication administration, we held these medicines, she did get her liter of fluids. While here in the ER patient was noted to have converted on her own to normal sinus rhythm, with a confirmed EKG at 0155. Further laboratory work including CBC, BMP and electrolytes including magnesium are within normal limits. TSH is elevated. Chest x-ray shows no acute abnormality. This point in time, patient will be admitted for new onset atrial fibrillation. Patient is agreement with further disposition of admission. Per Dr. Carlos, will start heparin protocol. - Medical Records Medical records reviewed: Yes I reviewed the patient's medical records. - Lab Data Lab results reviewed: Yes I reviewed the patient's lab results. Result diagrams: 11/19/18 23:39 11/19/18 23:39 Lab Results 11/19/18 11/19/18 11/19/18 Range/Units 23:39 23:39 23:39 WBC 9.7 (4.3-11.1) K/mcL RBC 4.54 (3.82-4.97) M/mcL Hgb 13.0 (11.5-15.4) g/dL Hct 39.3 (35.3-44.9) % MCV 86.6 (83.0-100.0) fL MCH 28.6 (28.0-33.3) pg MCHC 33.1 (31.6-35.5) g/dL RDW 12.4 (11.5-14.5) % Plt Count 296 (140-400) K/mcL MPV 9.3 L (9.4-12.4) fL Immature Gran % 0.5 (0-4) % Seg Neutrophils % 44.7 % Lymphocytes % 37.9 % Monocytes % 13.4 % Eosinophils % 3.1 % Basophils % 0.4 % Neutrophils # 4.3 (1.6-8.9) K/mcL Lymphocytes # 3.7 (0.6-4.6) K/mcL Monocytes # 1.3 (0.0-1.3) K/mcL Eosinophils # 0.3 (0.0-0.6) K/mcL Basophils # 0.0 (0.0-0.2) K/mcL PT 10.4 (9.4-12.1) Seconds INR 0.9 APTT 26.5 (26.0-36.0) Seconds Sodium 137 (136-145) mEq/L Potassium 3.9 (3.5-5.1) mEq/L Chloride 106 (98-107) mEq/L Carbon Dioxide 22 L (23-29) mEq/L BUN 19 (8-23) mg/dL Creatinine 0.84 (0.60-1.20) mg/dL Est GFR ( Amer) > 60 (> 60) Est GFR (Non-Af Amer) > 60 (> 60) BUN/Creatinine Ratio 23 (6-26) Glucose 109 H (70-105) mg/dL Calculated Osmolality 287 (280-300) Calcium 8.5 L (8.6-10.3) mg/dL Magnesium 2.1 (1.6-2.6) mg/dL Troponin I < 0.03 (< 0.04) ng/mL TSH 5.975 H (0.340-5.600) mcIU/mL Urine Color (Yellow) Urine Clarity (Clear) Urine pH (5.0-8.0) pH Units Ur Specific [place] (1.010-1.025) Urine Protein (Neg-Trace) mg/dL Urine Glucose (UA) (Normal) mg/dL Urine Ketones (Negative) mg/dL Urine Blood (Negative) Urine Nitrite (Negative) Urine Bilirubin (Negative) Urine Urobilinogen (Normal) mg/dL Ur Leukocyte Esterase (Negative) Ur Culture Indicated? (NO) 11/20/18 Range/Units 00:00 WBC (4.3-11.1) K/mcL RBC (3.82-4.97) M/mcL Hgb (11.5-15.4) g/dL Hct (35.3-44.9) % MCV (83.0-100.0) fL MCH (28.0-33.3) pg MCHC (31.6-35.5) g/dL RDW (11.5-14.5) % Plt Count (140-400) K/mcL MPV (9.4-12.4) fL Immature Gran % (0-4) % Seg Neutrophils % % Lymphocytes % % Monocytes % % Eosinophils % % Basophils % % Neutrophils # (1.6-8.9) K/mcL Lymphocytes # (0.6-4.6) K/mcL Monocytes # (0.0-1.3) K/mcL Eosinophils # (0.0-0.6) K/mcL Basophils # (0.0-0.2) K/mcL PT (9.4-12.1) Seconds INR APTT (26.0-36.0) Seconds Sodium (136-145) mEq/L Potassium (3.5-5.1) mEq/L Chloride (98-107) mEq/L Carbon Dioxide (23-29) mEq/L BUN (8-23) mg/dL Creatinine (0.60-1.20) mg/dL Est GFR ( Amer) (> 60) Est GFR (Non-Af Amer) (> 60) BUN/Creatinine Ratio (6-26) Glucose (70-105) mg/dL Calculated Osmolality (280-300) Calcium (8.6-10.3) mg/dL Magnesium (1.6-2.6) mg/dL Troponin I (< 0.04) ng/mL TSH (0.340-5.600) mcIU/mL Urine Color Yellow (Yellow) Urine Clarity Clear (Clear) Urine pH 7.0 (5.0-8.0) pH Units Ur Specific [place] 1.011 (1.010-1.025) Urine Protein Negative (Neg-Trace) mg/dL Urine Glucose (UA) Normal (Normal) mg/dL Urine Ketones Negative (Negative) mg/dL Urine Blood Negative (Negative) Urine Nitrite Negative (Negative) Urine Bilirubin Negative (Negative) Urine Urobilinogen Normal (Normal) mg/dL Ur Leukocyte Esterase Negative (Negative) Ur Culture Indicated? NO (NO) - Radiology Data Radiology results reviewed: Yes I reviewed the patient's radiology results. Chest X-Ray 11/20/18 00:03 IMPRESSION: Stable portable study. D/ / Kait Pearl Cha, MD / Kait Pearl Cha, MD Interpreting Provider: Kait Pearl Cha, MD - EKG Data EKG #1 EKG attestation: Yes I reviewed and interpreted this EKG. EKG results narrative: EKG obtained at 2341 ventricular rate of 123, irregularly irregular rhythm with ventricular rate of 123, no ST segment elevation or depression, appears nature fibrillation with RVR here in Repeat EKG performed at 0155 with ventricular rate of 76, regular rhythm, normal axis, no ST segment elevation or depression.
[2018-11-20 00:18] LABS: Bilirubin,Urine Negative (Negative); Blood,Urine Negative (Negative); Clarity,Urine Clear (Clear); Color,Urine Yellow (Yellow); Glucose,Urine (UA) Normal (Normal); Ketones,Urine Negative (Negative); Leukocyte Esterase,Urine Negative (Negative); Nitrite,Urine Negative (Negative); Protein,Urine Negative (Neg-Trace); Specific Gravity,Urine 1.011 (1.010-1.025); Urobilinogen,Urine Normal (Normal)
[2018-11-20 00:35] LABS: Basophils % 0.4 %; Eosinophils # 0.3 K/mcL (0.0-0.6); Eosinophils % 3.1 %; Hematocrit 39.3 % (35.3-44.9); Immature Granulocytes % 0.5 % (0-4); Lymphocytes # 3.7 K/mcL (0.6-4.6); Lymphocytes % 37.9 %; Mean Corpuscular HGB Conc 33.1 g/dL (31.6-35.5); Mean Corpuscular Hemoglobin 28.6 pg (28.0-33.3); Mean Corpuscular Volume 86.6 fL (83.0-100.0); Mean Platelet Volume 9.3 fL (9.4-12.4); Monocytes # 1.3 K/mcL (0.0-1.3); Monocytes % 13.4 %; Neutrophils # 4.3 K/mcL (1.6-8.9); Platelet Count 296 K/mcL (140-400); Red Blood Count 4.54 M/mcL (3.82-4.97); Red Cell Distribution Width 12.4 % (11.5-14.5); Segmented Neutrophils % 44.7 %; White Blood Count 9.7 K/mcL (4.3-11.1)
[2018-11-20 00:42] LABS: INR 0.9; Prothrombin Time 10.4 Seconds (9.4-12.1)
[2018-11-20 00:45] LABS: Activated Partial Thrombo Time 26.5 Seconds (26.0-36.0)
[2018-11-20 00:57] LABS: BUN/Creatinine Ratio 23 (6-26); Blood Urea Nitrogen 19 mg/dL (8-23); Calcium 8.5 mg/dL (8.6-10.3); Carbon Dioxide 22 mEq/L (23-29); Chloride 106 mEq/L (98-107); Glucose 109 mg/dL (70-105); Magnesium 2.1 mg/dL (1.6-2.6); Osmolality,Calculated 287 (280-300); Potassium 3.9 mEq/L (3.5-5.1); Sodium 137 mEq/L (136-145); eGFR For African Americans > 60 (> 60); eGFR For Non-African Americans > 60 (> 60)
[2018-11-20 00:58] LABS: Troponin I < 0.03 ng/mL (< 0.04)
[2018-11-20 01:12] LABS: Thyroid Stimulating Hormone 5.975 mcIU/mL (0.340-5.600)
--- NOTE | 2018-11-20 02:11 | Emergency Department Note ---
Disposition Clinical Impression: New onset a-fib Disposition: Admitted As Inpatient Condition: Good Time of Disposition: 02:20 General Adult HPI - General Chief complaint: ED Syncope Stated complaint: FEELING DIZZY Time Seen by Provider: 11/19/18 23:10 Source: patient, EMS Mode of arrival: EMS Limitations: no limitations Nursing Notes Reviewed: Yes Vital Signs Reviewed: Yes - History of Present Illness Pain Scale: 8 - Related Data Home Medications Medication Instructions Recorded Confirmed Levothyroxine [Synthroid] 75 mcg PO QAM 11/07/17 11/19/18 Allergies Allergy/AdvReac Type Severity Reaction Status Date / Time No Known Allergies Allergy Verified 11/19/18 23:33 Constitutional: Reports: weakness. Denies: fever, chills ENT ED: Denies: congestion Cardiovascular: Denies: chest pain, palpitations, dyspnea on exertion, syncope Respiratory: Reports: cough. Denies: dyspnea, wheezes, sputum production Gastrointestinal: Denies: abdominal pain, nausea, vomiting Genitourinary: Denies: urgency, dysuria Musculoskeletal: Denies: back pain Integumentary: Denies: rash Neurological: Reports: weakness. Denies: headache, numbness, confusion Psychiatric: Denies: anxiety Endocrine: Reports: fatigue Hematological/Lymphatic: Denies: easy bleeding Past Medical History - Past Medical History Medical history: Reports: thyroid disease Surgical history: Reports: hysterectomy Psychiatric history: Reports: no psych history - Social History Smoking Status: Never smoker Smokeless Tobacco Status: No Alcohol use: Reports: none Drug use: Reports: none Physical Exam - General Limitations: no limitations General appearance: alert Course Vital Signs Temperature 98.3 F 11/19/18 23:25 Pulse Rate 128 11/19/18 23:25 Respiratory Rate 11/19/18 23:25 Blood Pressure 131/76 11/19/18 23:25 O2 Sat by Pulse Oximetry 98 11/19/18 23:25 Temperature 98.2 F 11/19/18 23:29 Pulse Rate 68 11/20/18 02:20 Respiratory Rate 11/20/18 02:20 Blood Pressure 134/78 11/20/18 02:20 O2 Sat by Pulse Oximetry 98 11/20/18 02:20 Oxygen Delivery Oxygen Delivery Room Air Medical Decision Making - Medical Records Medical records reviewed: Yes I reviewed the patient's medical records. - Lab Data Lab results reviewed: Yes I reviewed the patient's lab results. Result diagrams: 11/19/18 23:39 11/19/18 23:39 Lab Results 11/19/18 11/19/18 11/19/18 Range/Units 23:39 23:39 23:39 WBC 9.7 (4.3-11.1) K/mcL RBC 4.54 (3.82-4.97) M/mcL Hgb 13.0 (11.5-15.4) g/dL Hct 39.3 (35.3-44.9) % MCV 86.6 (83.0-100.0) fL MCH 28.6 (28.0-33.3) pg MCHC 33.1 (31.6-35.5) g/dL RDW 12.4 (11.5-14.5) % Plt Count 296 (140-400) K/mcL MPV 9.3 L (9.4-12.4) fL Immature Gran % 0.5 (0-4) % Seg Neutrophils % 44.7 % Lymphocytes % 37.9 % Monocytes % 13.4 % Eosinophils % 3.1 % Basophils % 0.4 % Neutrophils # 4.3 (1.6-8.9) K/mcL Lymphocytes # 3.7 (0.6-4.6) K/mcL Monocytes # 1.3 (0.0-1.3) K/mcL Eosinophils # 0.3 (0.0-0.6) K/mcL Basophils # 0.0 (0.0-0.2) K/mcL PT 10.4 (9.4-12.1) Seconds INR 0.9 APTT 26.5 (26.0-36.0) Seconds Sodium 137 (136-145) mEq/L Potassium 3.9 (3.5-5.1) mEq/L Chloride 106 (98-107) mEq/L Carbon Dioxide 22 L (23-29) mEq/L BUN 19 (8-23) mg/dL Creatinine 0.84 (0.60-1.20) mg/dL Est GFR ( Amer) > 60 (> 60) Est GFR (Non-Af Amer) > 60 (> 60) BUN/Creatinine Ratio 23 (6-26) Glucose 109 H (70-105) mg/dL Calculated Osmolality 287 (280-300) Calcium 8.5 L (8.6-10.3) mg/dL Magnesium 2.1 (1.6-2.6) mg/dL Troponin I < 0.03 (< 0.04) ng/mL TSH 5.975 H (0.340-5.600) mcIU/mL Urine Color (Yellow) Urine Clarity (Clear) Urine pH (5.0-8.0) pH Units Ur Specific [place] (1.010-1.025) Urine Protein (Neg-Trace) mg/dL Urine Glucose (UA) (Normal) mg/dL Urine Ketones (Negative) mg/dL Urine Blood (Negative) Urine Nitrite (Negative) Urine Bilirubin (Negative) Urine Urobilinogen (Normal) mg/dL Ur Leukocyte Esterase (Negative) Ur Culture Indicated? (NO) 11/20/18 Range/Units 00:00 WBC (4.3-11.1) K/mcL RBC (3.82-4.97) M/mcL Hgb (11.5-15.4) g/dL Hct (35.3-44.9) % MCV (83.0-100.0) fL MCH (28.0-33.3) pg MCHC (31.6-35.5) g/dL RDW (11.5-14.5) % Plt Count (140-400) K/mcL MPV (9.4-12.4) fL Immature Gran % (0-4) % Seg Neutrophils % % Lymphocytes % % Monocytes % % Eosinophils % % Basophils % % Neutrophils # (1.6-8.9) K/mcL Lymphocytes # (0.6-4.6) K/mcL Monocytes # (0.0-1.3) K/mcL Eosinophils # (0.0-0.6) K/mcL Basophils # (0.0-0.2) K/mcL PT (9.4-12.1) Seconds INR APTT (26.0-36.0) Seconds Sodium (136-145) mEq/L Potassium (3.5-5.1) mEq/L Chloride (98-107) mEq/L Carbon Dioxide (23-29) mEq/L BUN (8-23) mg/dL Creatinine (0.60-1.20) mg/dL Est GFR ( Amer) (> 60) Est GFR (Non-Af Amer) (> 60) BUN/Creatinine Ratio (6-26) Glucose (70-105) mg/dL Calculated Osmolality (280-300) Calcium (8.6-10.3) mg/dL Magnesium (1.6-2.6) mg/dL Troponin I (< 0.04) ng/mL TSH (0.340-5.600) mcIU/mL Urine Color Yellow (Yellow) Urine Clarity Clear (Clear) Urine pH 7.0 (5.0-8.0) pH Units Ur Specific [place] 1.011 (1.010-1.025) Urine Protein Negative (Neg-Trace) mg/dL Urine Glucose (UA) Normal (Normal) mg/dL Urine Ketones Negative (Negative) mg/dL Urine Blood Negative (Negative) Urine Nitrite Negative (Negative) Urine Bilirubin Negative (Negative) Urine Urobilinogen Normal (Normal) mg/dL Ur Leukocyte Esterase Negative (Negative) Ur Culture Indicated? NO (NO) - Radiology Data Radiology results reviewed: Yes I reviewed the patient's radiology results. Chest X-Ray 11/20/18 00:03 IMPRESSION: Stable portable study. D/ / Kait Pearl Cha, MD / Kait Pearl Cha, MD Interpreting Provider: Kait Pearl Cha, MD - EKG Data EKG #1 EKG attestation: Yes I reviewed and interpreted this EKG. EKG results narrative: EKG shows atrial fibrillation with RVR with ventricular rate of 123. No significant ST segment elevation or depression. PVC pairs. EKG #2 EKG attestation: Yes I reviewed and interpreted this EKG. EKG results narrative: EKG shows atrial fibrillation with RVR with ventricular rate of 123. No significant ST segment elevation or depression. PVC pairs. Critical Care Time Critical Care Time: Yes Total Critical Care Time: 40 Attestation: Critical care performed: Time is exclusive of separately billable procedures. Time includes: direct patient care, patient reassessment, coordination of patient care, interpretation of data (laboratory data, radiology data, and respiratory data), review of patient's medical records, medical consultation and documentation of patient care. Procedures included in critical care time: Procedures excluded from critical care time: Attestation Statement - Attestation Attestation: I, Franki Becerra MD, personally evaluated this patient and discussed their management with the resident physician. I reviewed the resident's note and agree with the documented findings, medical decision making, and plan of care. I reviewed the residents documentation and agree with the residents assessment and plan of care. I have personally had face to face time with the patient. I personally supervised and was present for the bedolla/critical portions of the following procedures completed by the resident: EKG interpretation. 78-year-old female presents to the emergency department with a complaint of generalized fatigue and weakness over the past 2-3 days. Today she has had palpitations with dizziness and some shortness of breath. No actual chest pain but some intermittent heaviness in her chest. She states that she has felt like her heart is racing and irregular. No prior history of atrial fibrillation or other irregular heartbeat. No cardiac history. No hypertension. Patient does take level thyroxine. She also takes low-dose aspirin but not every day. On examination patient is a well-developed well-nourished well-appearing elderly female in no acute distress. She is alert and oriented 3. There is no cyanosis or diaphoresis. Breath sounds are clear and equal bilaterally. Heart is irregularly irregular with a moderate tachycardia. Abdomen is soft and nontender with normal bowel sounds. EKG shows atrial fibrillation with RVR with ventricular rate of 123. No significant ST segment elevation or depression. PVC pairs. Chest x-ray negative. Labs reviewed. Cardizem bolus and infusion were ordered however before it was given the patient's rapid ventricular response resolved and she remained in atrial fibrillation but rate mostly below 100. She then later converted to a normal sinus rhythm. Repeat EKG was obtained and showed a normal sinus rhythm with ventricular rate of 76 with no arrhythmia or ectopy or ischemic changes. Patient was started on heparin protocol. The hospitalist, Dr. Carlos, was consulted and accepted admission of the patient.
[2018-11-20] MEDS ORDERED: *HR* Heparin 5,000 UNIT/ML VIAL IVP PRN ×2 (03:06)
[2018-11-20] MEDS ORDERED: *HR* Heparin 5,000 UNIT/ML VIAL IVP ONE (03:06)
[2018-11-20] MEDS: Heparin 25,000 UNIT/250 ML D5W 25,000 UNIT/250 ML IV.SOLN IVC SCH (03:51)
[2018-11-20 04:26] LABS: Heparin anti-factor XA UFH 0.01 IU/mL (0.30-0.70)
[2018-11-20 04:27] LABS: INR 0.9; Prothrombin Time 10.7 Seconds (9.4-12.1)
[2018-11-20 04:28] LABS: Activated Partial Thrombo Time 26.6 Seconds (26.0-36.0)
[2018-11-20 05:09] LABS: Mean Corpuscular HGB Conc 32.1 g/dL (31.6-35.5); Red Cell Distribution Width 12.2 % (11.5-14.5)
[2018-11-20 05:13] LABS: Hematocrit 38.6 % (35.3-44.9); Hemoglobin 12.4 g/dL (11.5-15.4); Immature Platelets 2.2 % (1.1-6.1); Mean Corpuscular Hemoglobin 28.9 pg (28.0-33.3); Red Blood Count 4.29 M/mcL (3.82-4.97); White Blood Count 8.2 K/mcL (4.3-11.1)
[2018-11-20] MEDS ORDERED: Ondansetron 4 MG/2 ML VIAL IVP PRN (09:18)
[2018-11-20] MEDS ORDERED: Naloxone 0.4 MG/ML INJ IVP PRN (09:18)
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
[2018-11-20] MEDS: Metoprolol XL (24 HR) Succ 25 MG TAB.ER.24H PO SCH (10:41)
[2018-11-20 11:18] LABS: Heparin anti-factor XA UFH 1.5 IU/mL (0.30-0.70)
[2018-11-20 12:26] LABS: INR 1.1; Prothrombin Time 12.1 Seconds (9.4-12.1)
[2018-11-20] MEDS ORDERED: Warfarin perPT PO PRN (18:00)
[2018-11-20] MEDS ORDERED: *HR* Warfarin 5 MG TABLET PO ONE (18:00)
--- NOTE | 2018-11-20 21:38 | Electrocardiograph Report ---
[place] [id number] Test Date: 2018-11-20 Pat Name: Barb Abdi Department: EXAM20 Room: 3B23 Gender: F Utility Worker Production: : 1940 Requested By: Franki Becerra Order Number: [id number] Reading MD: Venessa Jean-Baptiste Measurements Intervals [place] Rate: 76 P: 71 [place]: 110 QRS: 74 QRSD: 85 T: 64 QT: 392 QTc: 441 Interpretive Statements Sinus rhythm Borderline short [place] interval Electronically Signed On 11-20-2018 21:36:53 EDT by Venessa Jean-Baptiste
[2018-11-21 02:06] LABS: Basophils % 0.6 %; Eosinophils # 0.4 K/mcL (0.0-0.6); Eosinophils % 5.5 %; Hematocrit 40.5 % (35.3-44.9); Hemoglobin 12.6 g/dL (11.5-15.4); Immature Granulocytes % 0.3 % (0-4); Lymphocytes # 2.9 K/mcL (0.6-4.6); Lymphocytes % 43.8 %; Mean Corpuscular HGB Conc 31.1 g/dL (31.6-35.5); Mean Corpuscular Hemoglobin 28.2 pg (28.0-33.3); Mean Corpuscular Volume 90.6 fL (83.0-100.0); Mean Platelet Volume 9.8 fL (9.4-12.4); Monocytes # 0.9 K/mcL (0.0-1.3); Monocytes % 13.2 %; Neutrophils # 2.4 K/mcL (1.6-8.9); Platelet Count 257 K/mcL (140-400); Red Blood Count 4.47 M/mcL (3.82-4.97); Red Cell Distribution Width 12.4 % (11.5-14.5); Segmented Neutrophils % 36.6 %; White Blood Count 6.6 K/mcL (4.3-11.1)
[2018-11-21 02:13] LABS: INR 0.9; Prothrombin Time 10.4 Seconds (9.4-12.1)
[2018-11-21 02:26] LABS: BUN/Creatinine Ratio 22 (6-26); Blood Urea Nitrogen 19 mg/dL (8-23); Calcium 8.5 mg/dL (8.6-10.3); Carbon Dioxide 27 mEq/L (23-29); Chloride 105 mEq/L (98-107); Glucose 111 mg/dL (70-105); Magnesium 2.2 mg/dL (1.6-2.6); Osmolality,Calculated 289 (280-300); Potassium 4.2 mEq/L (3.5-5.1); Sodium 138 mEq/L (136-145); eGFR For African Americans > 60 (> 60); eGFR For Non-African Americans > 60 (> 60)
[2018-11-21] MEDS: Heparin 25,000 UNIT/250 ML D5W 25,000 UNIT/250 ML IV.SOLN IVC SCH (03:50)
[2018-11-21] MEDS: Metoprolol XL (24 HR) Succ 25 MG TAB.ER.24H PO SCH (09:35)
--- NOTE | 2018-11-21 09:58 | Discharge Summary ---
- NOTES TO OUTPATIENT PROVIDER Notes to Outpatient Provider: f/u with PCP in one week. Please go to Coumadin clinic as scheduled. Date of Encounter: 11/21/18 Time of Encounter: 09:57 - Discharge Diagnosis (1) New onset a-fib Priority: Primary Status: Acute (2) Hypothyroidism Priority: Secondary Status: Acute Qualifiers: Hypothyroidism type: unspecified Qualified Code(s): E03.9 - Hypothyroidism, unspecified (3) History of stroke Priority: Secondary Status: Acute (4) DVT prophylaxis Priority: Secondary Status: Acute (5) Left rib fracture Priority: Secondary Status: Acute Qualifiers: Encounter type: initial encounter Rib fracture type: multiple ribs Fracture type: closed Qualified Code(s): S22.42XA - Multiple fractures of ribs, left side, initial encounter for closed fracture Hospital course: Ms. Abdi is a 78 year old female with past medical history significant for hyperlipidemia, hypothyroidism, history of stroke and TIAs who presented to the ED to be evaluated for intermittent episodes of generalized weakness dizziness and palpitation. In the ED she was noted to be in atrial fibrillation with rapid ventricular response she was about bolus of diltiazem as well as diltiazem drip and about 45 minutes later she is self converted. Amongst her work up by the ED was unremarkable CBC, BMP and UA. TSH was slightly elevated patient did admit to be noncompliance with her levothyroxine citing forgetfulness. She was admitted in the hospital and placed her on nuclear monitoring technician. She was started on Metoprolol, her rate well controlled with metoprolol. Since her HR in low 60's cut down on Metoprolol XL dose to 12.5mg. her CHADSVASC score 3, so recommended her to go on Coumadin for anti coagulation. She is going to f/u at our Coumadin clinic. - Time Spent with Patient Total time spent providing and/or coordinating discharge services: - Discharge Medications Prescriptions: New Aspirin Enteric Coated [Aspirin EC] 81 mg PO DAILY #30 tablet. Warfarin [Coumadin] 5 mg PO 1800 #30 tablet Metoprolol Succinate [Toprol Xl] 12.5 mg PO DAILY #15 tab.er.24h Continued Levothyroxine [Synthroid] 75 mcg PO QAM Home Medications: Levothyroxine [Synthroid] 75 mcg PO QAM 11/07/17 [History] Aspirin Enteric Coated [Aspirin EC] 81 mg PO DAILY #30 tablet. 11/21/18 [Rx] Metoprolol Succinate [Toprol Xl] 12.5 mg PO DAILY #15 tab.er.24h 11/21/18 [Rx] Warfarin [Coumadin] 5 mg PO 1800 #30 tablet 11/21/18 [Rx] Allergies/Adverse Reactions: Allergy/AdvReac Type Severity Reaction Status Date / Time No Known Allergies Allergy Verified 11/19/18 23:33 Date of admission: 11/20/18 03:15 Primary care physician: Saul Murrieta MD - Constitutional Vitals: Temp Pulse Resp BP Pulse Ox 98.1 F 61 18 113/57 99 11/21/18 08:11/21/18 08:11/21/18 08:26 11/21/18 08:11/21/18 08:26 General appearance: Present: A&O X 3, no acute distress, answers questions appropriately Exam: Gen: Alert, awake, Oriented to time,place and person Chest: Diminished breath sounds B/L, No wheezing, No crackles, No rales Heart: S1S2+ RRR No murmurs Abd: Soft, NT, BS +, No organomegaly Ext: No edema, pulses are palpable, No calf tenderness Neuro : No acute focal neuro deficits noticed Skin: No rash. - Patient Status Disposition: Home, Self-Care Condition: Good - Discharge Instructions Follow Up With: Anticoagulation Management Service [Other] - 11/22/18 3:15 pm (Please bring your bottle of Warfarin, a list of your medications including any over the counter medications you are taking. Please bring your insurance and a photo ID. Thank you. ) Saul Murrieta MD [Primary Care Provider] - - Diet and Activity Activity: increase activity as tolerated Diet: low salt diet
[2018-11-21 12:00] VITALS: BP 110/68
--- NOTE | 2018-11-21 12:25 | Electrocardiograph Report ---
[address] [place], [place] [address] Test Date: 2018-11-19 Pat Name: Barb Abdi Department: [id number] Room: 3B23 Gender: F Assembly Operator: : 1940 Requested By: Jessi Jacobo Order Number: [id number] Reading MD: Albaro Gudino Measurements Intervals [place] Rate: 123 P: [place]: QRS: 82 QRSD: 92 T: 78 QT: 305 QTc: 437 Interpretive Statements SINUS RHYTHM WITH FREQUENT PAT DIFFUSE ST CHANGES Electronically Signed On 11-21-2018 12:24:07 EDT by Albaro Gudino
[2018-11-21] MEDS ORDERED: *HR* Warfarin 5 MG TABLET PO ONE (18:00)
== END 2018-11-21 12:09 | disposition home or self-care (01) ==
LOC: EMEROOARM 23:08 → 3BNU 23:08 → SUATTDRO 11-20 03:15 → 3BNU 11-20 03:59
PROVIDERS: ADMIT Pharmacist; ATTEND Family Medicine